=== PATIENT | female | born 1945 | race Caucasian/White ===

== ENCOUNTER → 2016-05-30 08:40 | Emergency (ER) | payer MEDICARE, MEDICAID | END | disposition left against medical advice (07) | LOC: BURERS 08:40 | DX: Z53.21 Procedure and treatment not carried out due to patient leaving prior to being seen by health care provider (principal) ==

== ENCOUNTER 2017-03-02 04:38 | Emergency (ER) | payer MEDICARE, MEDICAID | END 2017-03-02 05:11 | disposition home or self-care (01) | LOC: BURERS 04:38 | DX: I10 Essential (primary) hypertension (principal); I67.1 Cerebral aneurysm, nonruptured; Z79.899 Other long term (current) drug therapy | CPT/HCPCS: 99283 ==

== ENCOUNTER 2020-03-16 10:11 | Emergency (ER) | payer MEDICARE, MEDICAID ==
[2020-03-16 11:43] LABS: SARS-CoV-2 NAA Rapid Test Not Detected (NotDetected)
== END 2020-03-16 12:25 | disposition home or self-care (01) ==
LOC: BURERS 10:11
DX: B34.9 Viral infection, unspecified (principal); N18.9 Chronic kidney disease, unspecified; M79.7 Fibromyalgia; Z20.822 Contact with and (suspected) exposure to COVID-19; I12.9 Hypertensive chronic kidney disease with stage 1 through stage 4 chronic kidney disease, or unspecified chronic kidney disease; Z87.891 Personal history of nicotine dependence
CPT/HCPCS: 0240U; 99283

== ENCOUNTER 2020-11-04 13:32 | Outpatient (CLI) | payer MEDICARE, MEDICAID | END 2020-11-04 13:33 | disposition home or self-care (01) | LOC: BURRAD 13:32 | PROVIDERS: ATTEND Internal Medicine Nephrology | DX: Z11.1 Encounter for screening for respiratory tuberculosis (principal) | CPT/HCPCS: 71045 ==

== ENCOUNTER 2023-09-27 11:12 | Outpatient (CLI) | payer OTHER, MEDICAID | END 2023-09-27 11:13 | disposition home or self-care (01) | LOC: BURRAD 11:12 | PROVIDERS: ATTEND Nurse Practitioner Family | DX: M25.551 Pain in right hip (principal); M25.552 Pain in left hip; M16.12 Unilateral primary osteoarthritis, left hip ==